=== PATIENT | female | born 1965 | race Caucasian/White ===

== ENCOUNTER → 2018-01-28 | Outpatient (CLI) | payer OTHER ==
[~2018-01-28] VITALS: Ht 162.6 cm; Wt 111.2 kg
[~2018-01-28] MED LIST: ADVAIR 100/501 DISK IH; ARAVA20 MG PO; ASPIRIN EC325 MG PO; Arava PO; BENADRYL25 MG PO; Benadryl PO; COUMADIN; DOXYCYCLINE HY100 MG PO; ENDOCET 5-3251 EACH PO; ERYTHROMYCIN TP; Feosol PO; HIBICLENS118 ML TP; KENALOG,ARISTOC80 GM TP; KETOCONAZOLE60 GM TP; LEFLUNOMIDE20 MG PO; MEGACE20 MG PO; NASONEX17 GM BOTH NARES; NEXIUM40 MG PO; PROAIR HFA8.5 GM IH; Proventil,Ventolin H IH; SENNA-TIME S T1 EACH PO; SYSTANE ULTRA 015 ML BOTH EYES; THEO-24400 MG PO; THERAGRAN1 TABLET PO; TYLENOL EXTRA500 MG PO; UNIPHYL PO; VAGINAL CREAM TP; VENTOLIN HFA18 GM IH; Vibramycin, Doryx PO; Vicodin,Norco 5/325 PO; Voltaren PO; ZYVOX600 MG PO
== END | disposition home or self-care (01) ==
LOC: AMB 12:39
DX: Z12.11 Encounter for screening for malignant neoplasm of colon (principal); D12.3 Benign neoplasm of transverse colon; Z86.010 Personal history of colon polyps; Z83.71 Family history of colonic polyps; K57.30 Diverticulosis of large intestine without perforation or abscess without bleeding; K64.8 Other hemorrhoids; K22.2 Esophageal obstruction; K44.9 Diaphragmatic hernia without obstruction or gangrene; K25.9 Gastric ulcer, unspecified as acute or chronic, without hemorrhage or perforation; L40.50 Arthropathic psoriasis, unspecified; J45.909 Unspecified asthma, uncomplicated; G47.30 Sleep apnea, unspecified; L73.2 Hidradenitis suppurativa; Z68.41 Body mass index [BMI] 40.0-44.9, adult; Z96.653 Presence of artificial knee joint, bilateral; Z96.641 Presence of right artificial hip joint; Z87.891 Personal history of nicotine dependence; Z88.0 Allergy status to penicillin; Z88.1 Allergy status to other antibiotic agents; Z88.2 Allergy status to sulfonamides; Z88.8 Allergy status to other drugs, medicaments and biological substances
CPT/HCPCS: 88305; 88342 TC